=== PATIENT | female | born 1985 | race Caucasian/White ===

== ENCOUNTER → 2017-05-15 | Outpatient (CLI) | payer OTHER ==
[~2017-05-15] MED LIST: LISD50CA PO; flexeril PO
--- NOTE | 2017-05-15 19:08 | Diagnostic Imaging Report ---
Three views of the lumbar spine. INDICATION: Low back pain. FINDINGS: There is good alignment of the lumbar spine. The vertebral body heights are preserved. Disc heights are also preserved. There is no significant osteophyte formation. The paraspinal soft tissues appear unremarkable. The SI joints appear unremarkable. There is internal fixation screw through the right femoral neck seen. IMPRESSION: Unremarkable exam. Dictated by: Dictated on workstation # [id number]
== END ==
LOC: RAD 15:04
PROVIDERS: ATTEND Chiropractor
DX: M54.5 Low back pain (principal); M54.15 Radiculopathy, thoracolumbar region; M79.1 Myalgia
CPT/HCPCS: 72100

== ENCOUNTER → 2017-08-08 | Outpatient (CLI) | payer OTHER | LOC: RAD 07:07 | PROVIDERS: ATTEND Orthopaedic Surgery Foot and Ankle Surgery | DX: M25.572 Pain in left ankle and joints of left foot; Z53.29 Procedure and treatment not carried out because of patient's decision for other reasons ==

== ENCOUNTER → 2018-01-09 | Outpatient (CLI) | payer BC, OTHER ==
--- NOTE | 2018-01-09 09:26 | Diagnostic Imaging Report ---
PROCEDURE: MRI left joint lower extremity without contrast. TECHNIQUE: Multiplanar, multisequence non contrast-enhanced MRI of the left lower extremity was accomplished. INDICATION: Left ankle pain. Prior ankle surgery 4-5 years ago. COMPARISONS: None available. FINDINGS: TENDONS: Achilles is normal. Deep peroneus longus and brevis tendons are normal. The posterior tibialis, flexor digitorum longus and flexor hallucis longus are normal. Anterior tibialis, extensor hallucis longus, extensor digitorum longus and peroneus tertius tendons are all normal where visualized. LIGAMENTS: The anterior and posterior distal tibiofibular ligaments are intact. The anterior talofibular ligament is poorly defined and has foci of susceptibility artifact adjacent to it compatible with prior surgery. There is likely a partial thickness tearing that is healed via scar formation. Calcaneofibular and posterior talofibular ligaments are normal. The medial deltoid ligamentous complex is intact. Spring ligament is also intact. BONES AND CARTILAGE: No fracture or stress fracture in the hindfoot or ankle. No osteochondral defect of the talar dome. Articular cartilage in the tibiotalar and posterior subtalar joints are well-maintained. SOFT TISSUES: No evidence of plantar fasciitis. No abnormal soft tissue scar/fibrosis within the tarsal canal/sinus tarsi or tarsal tunnel. No ankle joint effusion. An elongated and loculated focus of joint fluid extends through the posterior talofibular ligament is most suggestive of a synovial cyst/small ganglion. This has a thin neck communicating with the joint space (best seen on sagittal image 5, series 6). Ganglion/synovial cyst measures 1.5 x 0.6 cm and extends posteriorly along the dorsal aspect of the talus. IMPRESSION: 1. Prior surgery of the anterior talofibular ligament which is ill-defined suggestive of partial tearing that has partially healed with scar formation. 2. No acute tendinous abnormality. 3. Small synovial cyst/ganglion extending posterior to the posterior talofibular ligament. This does not result in mass effect on any surrounding tendons or neurovascular bundles. Dictated by: Dictated on workstation # [id number]
== END ==
LOC: RAD 08:03
PROVIDERS: ATTEND Nurse Practitioner Family
DX: M24.272 Disorder of ligament, left ankle (principal); Z98.890 Other specified postprocedural states
CPT/HCPCS: 73721

== ENCOUNTER → 2019-08-01 | Outpatient (CLI) | payer BC ==
[2019-08-01 12:28] LABS: ABSOLUTE RETIC # 57 10e9/L (24-90); BASOPHILS % (AUTO) 0 % (0-10); EOSINOPHILS # (AUTO) 0.1 10^3/uL (0.0-0.3); EOSINOPHILS % (AUTO) 1 % (0-10); HEMATOCRIT 38 % (35-52); HEMOGLOBIN 12.5 G/DL (11.5-16.0); LYMPHOCYTES # (AUTO) 1.9 X 10^3 (1.0-4.0); LYMPHOCYTES % (AUTO) 19 % (12-44); MEAN CORPUSCULAR HEMOGLOBIN 26 PG (25-34); MEAN CORPUSCULAR HGB CONC 33 G/DL (32-36); MEAN CORPUSCULAR VOLUME 79 FL (80-99); MEAN PLATELET VOLUME 9.9 FL (7.4-10.4); MONOCYTES # (AUTO) 0.7 X 10^3 (0.0-1.0); MONOCYTES % (AUTO) 7 % (0-12); NEUTROPHILS # (AUTO) 7.4 X 10^3 (1.8-7.8); NEUTROPHILS % (AUTO) 73 % (42-75); PLATELET COUNT 355 10^3/uL (130-400); RED CELL DISTRIBUTION WIDTH 15.3 % (10.0-14.5); RETICULOCYTE % 1.19 % (0.50-2.40); WHITE BLOOD COUNT 10.2 10^3/uL (4.3-11.0)
[2019-08-01 12:50] LABS: EOSINOPHILS % (MANUAL) 1 %; LYMPHOCYTES % (MANUAL) 20 %; MICROCYTOSIS SLIGHT; MONOCYTES % (MANUAL) 5 %; NEUTROPHILS % (MANUAL) 74 %; TOXIC GRANULATION/VACUOLAZATIO 2+
== END ==
LOC: LAB 12:10
PROVIDERS: ATTEND Nurse Practitioner Family
DX: Z01.89 Encounter for other specified special examinations (principal)
CPT/HCPCS: 36415; 85007; 85027; 85045